=== PATIENT | female | born 1965 | race Caucasian/White ===

== ENCOUNTER 2022-05-15 08:28 | Outpatient (CLI) | payer OTHER | END 2022-05-15 09:17 | disposition home or self-care (01) | LOC: LAB 08:28 → EDBD 08:28 → LAB 09:17 | PROVIDERS: ATTEND Urology | DX: N30.00 Acute cystitis without hematuria (principal) ==

== ENCOUNTER 2022-05-15 09:04 | Outpatient (CLI) | payer OTHER | END 2022-05-15 09:10 | disposition home or self-care (01) | LOC: RAD 09:04 | PROVIDERS: ATTEND Urology | DX: N20.0 Calculus of kidney (principal); N20.1 Calculus of ureter ==

== ENCOUNTER 2022-05-17 08:16 | Outpatient (CLI) | payer OTHER | END 2022-05-17 08:32 | disposition home or self-care (01) | LOC: LAB 08:16 | PROVIDERS: ATTEND Urology | DX: N20.1 Calculus of ureter (principal); I11.9 Hypertensive heart disease without heart failure ==

== ENCOUNTER 2022-06-03 10:18 | Outpatient (CLI) | payer OTHER ==
[2022-06-05] MEDS ORDERED: OZEMPIC1 MG/0.71 (15:01)
[2022-06-05] MEDS ORDERED: CHILDREN'S ASPI81 MG PO (15:02)
[2022-06-05] MEDS ORDERED: TAMS0.4C PO (15:02)
[2022-06-05] MEDS ORDERED: CRESTOR20 MG PO (15:02)
[2022-06-05] MEDS ORDERED: TOPROL XL50 M1 PO (15:02)
[2022-06-05] MEDS ORDERED: SEPTRA PO (15:03)
== END 2022-06-03 10:21 | disposition home or self-care (01) ==
LOC: LAB 10:18
PROVIDERS: ATTEND Urology
DX: Z20.822 Contact with and (suspected) exposure to COVID-19 (principal)

== ENCOUNTER 2022-06-07 05:41 | Day surgery (SDC) | payer OTHER ==
[~2022-06-07 05:41] MED LIST: CHILDREN'S ASPI81 MG PO; CRESTOR20 MG PO; OZEMPIC1 MG/0.71; SEPTRA PO; TAMS0.4C PO; TOPROL XL50 M1 PO
== END 2022-06-07 15:50 | disposition home or self-care (01) ==
LOC: CIR.AMB 05:41
PROVIDERS: ATTEND Urology
DX: N20.2 Calculus of kidney with calculus of ureter (principal); E11.9 Type 2 diabetes mellitus without complications; Z20.822 Contact with and (suspected) exposure to COVID-19

== ENCOUNTER → 2022-06-19 | Outpatient (CLI) | payer OTHER | END | disposition home or self-care (01) | LOC: RAD 11:44 | PROVIDERS: ATTEND Urology | DX: N20.0 Calculus of kidney (principal) ==

== ENCOUNTER 2022-10-09 10:12 | Outpatient (CLI) | payer OTHER ==
[2022-10-13] MEDS ORDERED: VITAMIN D3 PO (09:17)
[2022-10-13] MEDS ORDERED: VITAMIN C PO (09:17)
[2022-10-13] MEDS ORDERED: ZINC PO (09:18)
== END 2022-10-09 10:14 | disposition home or self-care (01) ==
LOC: EKG 10:12
PROVIDERS: ATTEND Urology
DX: I11.9 Hypertensive heart disease without heart failure (principal)

== ENCOUNTER 2022-10-18 09:13 | Day surgery (SDC) | payer OTHER ==
[~2022-10-18 09:13] MED LIST changes: +VITAMIN C PO; +VITAMIN D3 PO; +ZINC PO
== END 2022-10-18 15:50 | disposition home or self-care (01) ==
LOC: CIR LITO 09:13
PROVIDERS: ATTEND Urology
DX: N20.0 Calculus of kidney (principal); E11.9 Type 2 diabetes mellitus without complications; Z20.822 Contact with and (suspected) exposure to COVID-19

== ENCOUNTER 2022-10-23 08:13 | Outpatient (CLI) | payer OTHER | END 2022-10-23 08:22 | disposition home or self-care (01) | LOC: RAD 08:13 | PROVIDERS: ATTEND Urology | DX: N20.0 Calculus of kidney (principal) ==

== ENCOUNTER 2023-02-26 07:48 | Outpatient (CLI) | payer OTHER | END 2023-02-26 07:56 | disposition home or self-care (01) | LOC: RAD 07:48 | PROVIDERS: ATTEND Urology | DX: N20.0 Calculus of kidney (principal) ==